=== PATIENT | female | born 1985 | race Caucasian/White ===

== ENCOUNTER 2017-11-08 17:10 | Emergency (ER) | payer MEDICAID ==
[~2017-11-08] VITALS: Ht 170.2 cm; Wt 70.0 kg
[~2017-11-08 17:10] MED LIST: BIRTH CONTROL PO; IBUP200C8 PO; MULT-516 PO; SUMA25TA4 PO
[2017-11-08 17:47] VITALS: BP 150/91
[2017-11-08] MEDS ORDERED: QUET100T4 PO (18:34)
[2017-11-08] MEDS ORDERED: KETOROLAC 30 MG/1 ML ONE (18:43)
[2017-11-08] MEDS ORDERED: KETOROLAC 30 MG/1 ML IM ONE (19:00)
[2017-11-08] MEDS ORDERED: ONDANSETRON ODT 4 MG ONE (19:38)
[2017-11-08] MEDS ORDERED: HYDROcodone/APAP 5/325 TABLET ONE (19:38)
[2017-11-08] MEDS ORDERED: ONDANSETRON ODT 4 MG PO ONE (20:00)
[2017-11-08] MEDS ORDERED: HYDROcodone/APAP 5/325 TABLET PO ONE (20:00)
== END 2017-11-08 20:04 | disposition home or self-care (01) ==
LOC: ED 19:20
DX: S52.501A Unspecified fracture of the lower end of right radius, initial encounter for closed fracture (principal); W01.0XXA Fall on same level from slipping, tripping and stumbling without subsequent striking against object, initial encounter; Y93.89 Activity, other specified; Y92.89 Other specified places as the place of occurrence of the external cause; Y99.8 Other external cause status
CPT/HCPCS: 29125; 73090; 73110; 96372; 99284; J1885; Q0162